=== PATIENT | male | born 1990 | race American Indian/Alaskan Native ===

== ENCOUNTER 2017-10-08 22:03 | Emergency (ER) | payer OTHER ==
[2017-10-08 22:26] VITALS: RESP 18; TEMP 97.9; BMI 21.2
--- NOTE | 2017-10-08 22:59 | ED PDOC ---
Arrival/HPI - General Chief Complaint: Cough, Cold, Congestion Time Seen by Provider: 10/08/17 22:26 Historian: Patient - History of Present Illness Narrative History of Present Illness (Text): 10/08/17 22:57 A 27 year old male, whose past medical history includes smoking, presents to the emergency department with a complaint of 2 day duration, worsening shortness of breath, left- sided chest pain and tightness. The patient notes associated productive cough. He states that he has been having difficulty laying flat in bed. He also complains of subjective fever and chill. The patient denies headache, dizziness, abdominal pain, nausea, vomiting, diarrhea, back pain, neck pain, urinary/bowel changes, or any other complaint. Time/Duration: Other (2 days) Symptom Onset: Sudden Symptom Course: Unchanged Activities at Onset: Rest, Light Context: Home Past Medical History - Provider Review Nursing Documentation Reviewed: Yes - Cardiac Hx Cardiac Disorders: No - Psychiatric Hx Psychophysiologic Disorder: No Hx Substance Use: No - Surgical History Other/Comment: wisdom teeth removal under anesthesia - Anesthesia Hx Anesthesia: Yes Hx Anesthesia Reactions: No Family/Social History - Physician Review Nursing Documentation Reviewed: Yes Family/Social History: No Known Family HX Smoking Status: Unknown If Ever Smoked Hx Alcohol Use: No Hx Substance Use: No Allergies/Home Meds Allergies/Adverse Reactions: Allergies No Known Allergies Allergy (Verified 10/08/17 22:31) Review of Systems - Physician Review All systems were reviewed & negative as marked: Yes - Review of Systems Constitutional: Fevers. absent: Night Sweats Respiratory: SOB, Cough, Sputum Cardiovascular: Chest Pain (Left sided chest pain and tightness) Gastrointestinal: absent: Abdominal Pain, Stool Changes, Diarrhea, Nausea, Vomiting Genitourinary Male: absent: Urinary Output Changes Musculoskeletal: absent: Back Pain, Neck Pain Physical Exam Vital Signs Reviewed: Yes Vital Signs Temp Pulse Resp BP Pulse Ox 10/09/17 01:04 97.9 F 88 18 127/78 98 10/09/17 01:03 97.9 F 88 18 127/75 96 10/08/17 22:25 97.9 F 103 H 18 135/82 96 Temperature: Afebrile Blood Pressure: Normal Pulse: Tachycardic Respiratory Rate: Normal Appearance: Positive for: Well-Appearing, Non-Toxic, Comfortable Pain Distress: None Mental Status: Positive for: Alert and Oriented X 3 - Systems Exam Head: Present: Atraumatic, Normocephalic Pupils: Present: PERRL Extroacular Muscles: Present: EOMI Conjunctiva: Present: Normal Mouth: Present: Moist Mucous Membranes Neck: Present: Normal Range of Motion Respiratory/Chest: Present: Good Air Exchange (Poor air entry bilaterally) Cardiovascular: Present: Regular Rate and Rhythm, Normal S1, S2. No: Murmurs Abdomen: No: Tenderness, Distention, Peritoneal Signs Back: Present: Normal Inspection Upper Extremity: Present: Normal Inspection. No: Cyanosis, Edema Lower Extremity: Present: Normal Inspection. No: Edema Neurological: Present: GCS=15, CN II-XII Intact, Speech Normal Skin: Present: Warm, Dry, Normal Color. No: Rashes Psychiatric: Present: Alert, Oriented x 3, Normal Insight, Normal Concentration Medical Decision Making ED Course and Treatment: 10/08/17 23:01 Impression: A 27 year old male presents to the emergency department with a complaint of shortness of breath, productive cough, left-sided chest pain, fever and chills. Plan: -- EKG -- Chest X-ray -- Labs -- Duoneb and SOLU- Medrol -- Reassess and disposition Progress Notes: 10/08/17 23:49 EKG: Ordered, reviewed, and independently interpreted the EKG. Rate : 95 BPM Rhythm : NSR Interpretation : Non-specific T-wave abnormality. 10/08/17 23:54: Chest X-ray read and interpreted by me shows no acute findings. Normal Chest X-ray. 10/09/17 01:36 On re-evaluation, patient feels better and is in no acute distress. I have discussed the results and plan with the patient, who expresses understanding. Patient in agreement with plan to be discharged home. Patient is stable for discharge. Patient was instructed to follow up with physician or return if symptoms worsen or new concerning symptoms arise. - Lab Interpretations Lab Results: 10/08/17 23:15 10/08/17 23:15 Lab Results 10/08/17 23:15: Sodium 142, Potassium 3.4 L, Chloride 103, Carbon Dioxide 26, Anion Gap 16, BUN 13, Creatinine 0.9, Est GFR ( Amer) > 60, Est GFR (Non- Af Amer) > 60, Random Glucose 105, Calcium 9.1, Magnesium 2.1, Total Bilirubin 0.9, AST 21, ALT 29, Alkaline Phosphatase 46, Lactate Dehydrogenase 426, Total Creatine Kinase 197, Troponin I < 0.01, Total Protein 7.4, Albumin 4.3, Globulin 3.1, Albumin/Globulin Ratio 1.4 10/08/17 23:15: WBC 8.2, RBC 4.40, Hgb 13.9 L, Hct 39.7 L, MCV 90.2, MCH 31.6, MCHC 35.0, RDW 11.9, Plt Count 216, MPV 9.8, Gran % 69.1 H, Lymph % (Auto) 18.0 L, Norton % (Auto) 8.3 H, Eos % (Auto) 4.4, Baso % (Auto) 0.2, Gran # 5.65, Lymph # (Auto) 1.5, Norton # (Auto) 0.7 H, Eos # (Auto) 0.4, Baso # (Auto) 0.02 I have reviewed the lab results: Yes - RAD Interpretation Radiology Orders: 10/08/17 22:44 CHEST PORTABLE [RAD] Stat - EKG Interpretation Interpreted by ED Physician: Yes Type: 12 lead EKG - Medication Orders Current Medication Orders: Discontinued Medications Albuterol/Ipratropium (Duoneb 3 Mg/0.5 Mg (3 Ml) Ud) 3 ml IH Q15M NEDRA Stop: 10/08/17 23:59 Last Admin: 10/08/17 23:40 Dose: 3 ml Azithromycin (Zithromax) 500 mg PO ONCE STA PRN Reason: Protocol Stop: 10/09/17 00:48 Last Admin: 10/09/17 01:03 Dose: 500 mg Methylprednisolone (Solu-Medrol) 125 mg IVP STAT STA Stop: 10/08/17 22:44 Last Admin: 10/08/17 23:06 Dose: 125 mg IVP Administration Document 10/08/17 23:06 OCS (Rec: 10/08/17 23:06 OCS [facility] [id number]) Charges for Administration # of IVP Administrations 1 - Scribe Statement The provider has reviewed the documentation as recorded by the Scribe Hanane Fischer Provider Scribe Attestation: All medical record entries made by the Scribe were at my direction and personally dictated by me. I have reviewed the chart and agree that the record accurately reflects my personal performance of the history, physical exam, medical decision making, and the department course for this patient. I have also personally directed, reviewed, and agree with the discharge instructions and disposition. Disposition/Present on Arrival - Present on Arrival Any Indicators Present on Arrival: No History of DVT/PE: No History of Uncontrolled Diabetes: No Urinary Catheter: No History of Decub. Ulcer: No History Surgical Site Infection Following: None - Disposition Have Diagnosis and Disposition been Completed?: Yes Diagnosis: Bronchitis Disposition: HOME/ ROUTINE Disposition Time: 01:35 Condition: GOOD Discharge Instructions (ExitCare): Acute Bronchitis Prescriptions: predniSONE [predniSONE Tab] 20 mg PO TID #15 tab Albuterol HFA [Ventolin HFA] 1 puff IH QID #1 puff Azithromycin [Zithromax] 250 mg PO DAILY #4 tab Referrals: FAMILY PROVIDER,NO [Primary Care Provider] - Follow up with primary Forms: [facility] (Persian), WORK NOTE
[2017-10-08] MEDS: Albuterol-Ipratrop 3 mg / 0.5 (3 ml) UD IH SCH ×3 (23:06→23:40)
[2017-10-08 23:34] LABS: BASO # 0.02 K/mm3 (0.0-2.0); BASO % 0.2 % (0.0-3.0); EOS # 0.4 (0.0-0.7); EOS % 4.4 % (1.5-5.0); GRAN # 5.65 (1.4-6.5); GRAN % 69.1 % (50.0-68.0); HEMOGLOBIN 13.9 g/dL (14.0-18.0); LYMPH # 1.5 (1.2-3.4); MEAN CELL VOLUME 90.2 fl (80.0-105.0); MEAN CORPUSCULAR HEMOGLOBIN 31.6 pg (25.0-35.0); MEAN PLATELET VOLUME 9.8 fl (7.0-11.0); MONO # 0.7 (0.1-0.6); MONO % 8.3 % (1.0-6.0); RBC 4.4 10^6/uL (3.5-6.1); RED CELL DISTRIBUTION WIDTH 11.9 % (11.5-14.5); WHITE BLOOD COUNT 8.2 10^3/ul (4.5-11.0)
[2017-10-08 23:38] LABS: ALB/GLOB RATIO 1.4 (1.1-1.8); ALBUMIN 4.3 g/dL (3.0-4.8); ALT/SGPT 29 U/L (7-56); AST/SGOT 21 U/L (17-59); BLOOD UREA NITROGEN 13 mg/dL (7-21); CALCIUM 9.1 mg/dL (8.4-10.5); GFR AFRICAN-AMERICAN > 60; GFR NON-AFRICAN AMERICAN > 60
[2017-10-08 23:49] LABS: TROPONIN I < 0.01 ng/mL
[2017-10-09 01:04] VITALS: PULSE 88
[2017-10-09 03:01] VITALS: BP 127/78; O2SAT 98
--- NOTE | 2017-10-09 09:09 | RAD ---
Date of service: 10/08/2017 HISTORY: sob COMPARISON: No prior. FINDINGS: LUNGS: The lungs are well inflated and clear. PLEURA: No significant pleural effusion identified, no pneumothorax apparent. CARDIOVASCULAR: Normal. OSSEOUS STRUCTURES: No significant abnormalities. VISUALIZED UPPER ABDOMEN: Normal. OTHER FINDINGS: None. IMPRESSION: No active pulmonary disease.
--- NOTE | 2017-10-09 09:24 | CARD ---
APPROVED REPORT Date of service: 10/08/2017 EKG Measurement Heart [id number] <Conclusion> Normal sinus rhythm Nonspecific T wave abnormality Tall P 2,3,AVF - Ch.Lung Disease.
== END 2017-10-09 01:04 | disposition home or self-care (01) ==
LOC: ED 22:03
DX: J40 Bronchitis, not specified as acute or chronic (principal)
CPT/HCPCS: 71045; 80053; 82550; 83615; 83735; 84484; 85025; 93005; 96374; 99283; J2930